=== PATIENT | female | born 1985 | race Hispanic/Latino ===

== ENCOUNTER 2017-12-23 14:23 | Observation (INO) | payer MEDICAID, SELFPAY ==
[~2017-12-23 14:23] MED LIST: ISOVUE-370 76%-LOCM 1 ML ONE
[2017-12-23 15:01] LABS: Bilirubin Negative (Negative); Blood, Urine Negative (Negative); Clarity CLEAR (Clear); Glucose, Urine (Dipstick) 100 mg/dL (Negative); Leukocyte Negative (Negative); Nitrite Negative (Negative); Protein, Urine (Dipstick) Trace mg/dL (Neg-Trace)
[2017-12-23 15:05] LABS: Pregnancy Test - Urine (BHCG) Negative (Negative); Pregu Control Background? CLEAR/WHITE (CLR/WHITE); Pregu Control Bar Appear? YES (CONTROL BAR)
[2017-12-23] MEDS ORDERED: Ondansetron HCl/PF 4 MG/2 ML Vial ONE (15:53)
[2017-12-23 16:07] LABS: #Basophils 0.1 thou/uL (0.0-0.2); #Eosinphils 0.1 thou/uL (0.0-0.7); #Lymphocytes 1.6 thou/uL (1.20-3.40); #Monocytes 1.4 thou/uL (0.11-0.59); #Neutrophils 12.6 thou/uL (1.40-6.50); %Basophils 0.5 % (0.0-1.0); %Eosinophils 0.6 % (0.0-10.0); %Lymphocytes 9.9 % (21.0-51.0); %Neutrophils 80.1 % (42.0-75.0); Mean Corpuscular HGB CONC 34.1 g/dL (32.0-36.0); Mean Corpuscular Hemoglobin 30.5 pg (27.0-31.0); Mean Corpuscular Volume 89.3 fl (81.0-99.0); Mean Platelet Volume 9.1 fL (7.4-10.4); Platelet Count 275 thou/uL (130-400); RBC Distribution Width 11.9 % (11.5-14.5); Red Blood Cell (RBC) Count 4.27 mill/uL (4.20-5.40); White Blood Cell (WBC) Count 15.7 thou/uL (4.8-10.8)
[2017-12-23 16:33] LABS: ALT (SGPT) 8 U/L (8-55); AST (SGOT) 12 U/L (5-34); Albumin 4.2 g/dL (3.5-5.0); Alkaline Phosphatase 66 U/L (40-150); Anion Gap 14 mmol/L (10-20); BUN (Urea Nitrogen) 9 mg/dL (7.0-18.7); Bilirubin, Total 0.8 mg/dL (0.2-1.2); Calc. Creatinine Clearance 0 mL/min (70-130); Calcium 9.1 mg/dL (7.8-10.44); Carbon Dioxide 23 mmol/L (22-29); Chloride 106 mmol/L (98-107); Estimated GFR-MDRD Greater than 90; Globulin 3.1 g/dL (2.4-3.5); Glucose 86 mg/dL (70-105); Lipase 49 U/L (8-78); Protein, Total 7.3 g/dL (6.0-8.3); Sodium 139 mmol/L (136-145)
--- NOTE | 2017-12-23 16:47 | ULT ---
RIGHT UPPER QUADRANT ULTRASOUND: 12/23/17 HISTORY: Right upper quadrant pain for four days. FINDINGS: In the expected location of the gallbladder, there is an echogenic mass-like structure with posterior shadowing. This may represent the gallbladder filled with sludge and multiple gallbladder calculi. H owever, color flow evaluation questions flow in this region. The gallbladder mass cannot be excluded based on sonographic evaluation. CT scan is recommended for further evaluation. Gallbladder wall is d ifficult to evaluate on this exam. The common duct measures 0.2 cm in diameter which is within normal limits. The limited visualized portions of the pancreas, visualized portions of the IVC, liver, and right kid celeste demonstrate a normal sonographic appearance. The right kidney measures 10.1 cm in length. IMPRESSION: 1. Echogenic mass-like area conforming to the region of the gallbladder with posterior shadowing . While these findings may be related to gallbladder filled with sludge and associated gallbladder ca lculi, color flow images suggest flow which could potentially be related to motion of the gallbladder sludge, but gallbladder mass with associated gallbladder calculi cannot be excluded. CT scan of the abdomen is recommended for further evaluation. 2. Common duct is normal in caliber. POS: OFF
[2017-12-23 17:57] LABS: BHCG - Serum Negative (NEGATIVE); Pregs Control Background? CLEAR/WHITE (CLR/WHITE); Pregs Control Bar Appear? YES (CONTROL BAR)
--- NOTE | 2017-12-23 18:22 | CT ---
CT ABDOMEN AND PELVIS WITH CONTRAST 12/23/17 Multiple axial tomograms obtained through the abdomen and pelvis with IV enhancement. HISTORY: Abnormal gallbladder noted on gallbladder ultrasound. CT was requested to rule out gallbladder mass. FINDINGS: Lung bases are clear. There is heterogeneity in the anterior right lobe of the liver extending to the gallbladder fossa. This may represent areas of fatty sparing. The gallbladder is abnormal. The gallbladder is distended and there is pericholecystic edema and flui d. No soft tissue mass identified within the gallbladder. Spleen and pancreas are unremarkable. Adrenal glands and kidneys are unremarkable. Bowel loops are unremarkable. Images through the pelvis reveal an IUD in the endometrial cavity. The left adnexa is prominent. There is a peripherally enhancing area in what appears to be the left a nd small amount of fluid in the left adnexa. This probably represents an involuting ovarian cyst; how ever, recommend correlation with serum HCG level to exclude ectopic. IMPRESSION: 1. The gallbladder is abnormal. The gallbladder is distended with pericholecystic fluid and shellie a. 2. Left pelvic adnexa is prominent with free fluid and a ring enhancing area which may represent involuting cyst. Recommend correlation with serum HCG level. 3. There is an IUD in the endometrial cavity. 4. Heterogeneity in the liver near the gallbladder fossa probably represents fatty sparring. Rec ommend followup after treatment of the apparent cholecystitis. POS: IVÁN
[2017-12-23] MEDS ORDERED: Piperacillin/Tazobactam 4.5 GM in Sodium Chloride 0.9% 100 ML IVPB SCH (18:30)
[2017-12-23] MEDS ORDERED: Morphine 5 MG/ML SYRINGE SLOW IVP PRN (20:30)
[2017-12-23] MEDS ORDERED: Ondansetron HCl/PF 4 MG/2 ML Vial IVP PRN (20:31)
[2017-12-23] MEDS ORDERED: Acetaminophen 325 MG TAB PO PRN (20:31)
[2017-12-23] MEDS ORDERED: Ondansetron ODT 4 MG TAB SL PRN (20:31)
[2017-12-23] MEDS: Sodium Chloride 0.9% 1,000 ML IV SCH (21:28)
[2017-12-23] MEDS ORDERED: FLU VACC QS2017-18 36 mo. & older 0.5 ML SYRINGE IM ONE (21:45)
[2017-12-24] MEDS: Sodium Chloride 0.9% 1,000 ML IV SCH (01:20)
[2017-12-24] MEDS ORDERED: Piperacillin/Tazobactam 4.5 GM in Sodium Chloride 0.9% 100 ML IVPB SCH (02:00)
[2017-12-24] MEDS ORDERED: Morphine 4 MG/ML Carpuject SLOW IVP PRN (07:56)
[2017-12-24] MEDS ORDERED: Ondansetron HCl/PF 4 MG/2 ML Vial IVP PRN (07:58)
[2017-12-24] MEDS ORDERED: Morphine 5 MG/ML SYRINGE SLOW IVP PRN (08:20)
[2017-12-24 09:00] LABS: ALT (SGPT) 122 U/L (8-55); AST (SGOT) 103 U/L (5-34); Albumin 3.4 g/dL (3.5-5.0); Alkaline Phosphatase 83 U/L (40-150); Anion Gap 9 mmol/L (10-20); BUN (Urea Nitrogen) 8 mg/dL (7.0-18.7); Calc. Creatinine Clearance 101 mL/min (70-130); Calcium 7.9 mg/dL (7.8-10.44); Carbon Dioxide 24 mmol/L (22-29); Chloride 111 mmol/L (98-107); Estimated GFR-MDRD Greater than 90; Globulin 2.4 g/dL (2.4-3.5); Glucose 85 mg/dL (70-105); Potassium 3.5 mmol/L (3.5-5.1); Protein, Total 5.8 g/dL (6.0-8.3); Sodium 140 mmol/L (136-145)
[2017-12-24] MEDS: D5 1/2 NS w/20 mEq KCL 1,000 ML IV SCH ×3 (09:12→21:08)
[2017-12-24 10:47] VITALS: BMI 23.4
[2017-12-24] MEDS: Piperacillin/Tazobactam 3.375 GM, Admixture Fee 1 EACH in Sodium Chloride 0.9% 100 ML IVPB SCH ×2 (11:34→18:05)
--- NOTE | 2017-12-24 12:19 | HP ---
CHIEF COMPLAINT: Abdominal pain. HISTORY OF PRESENT ILLNESS: Ms. Nix is a 32-year-old woman with known gallstones, who presented to the emergency room with a 4 day history of unrelenting right upper quadrant pain. She states that she has had similar episodes in the past, but they have resolved on their own. She was diagnosed wi th gallstones 5 or 6 years ago, but did not go to see a surgeon. She reports nausea and vomiting for the past 2 days and is unable to keep down any food. She did threw up several times, did not see an y blood or black color to her emesis. She denies any change in her bowel habits except for some diar rita. She has not seen any blood or melena in her stool. She denies any fevers, but has had some ch ills. When she went to the emergency room, she was found to be very tender in the right upper quadra nt and a gallbladder ultrasound showed possible stones and sludge versus a mass, so a CT scan was don e which did not show any soft tissue mass, but did show pericholecystic fluid and wall thickening con sistent with cholecystitis. Her common bile duct was normal and her LFTs were normal but her white c ount was elevated at 15,000, so she was admitted and started on IV antibiotics. Today, she is feelin g better. She still does not have much of an appetite, but is not nauseated and her pain has gone do wn with antibiotics and pain medication. PAST MEDICAL HISTORY: None. PAST SURGICAL HISTORY: None. FAMILY HISTORY: None. SOCIAL HISTORY: She does not smoke, drink or use illicit drugs. MEDICATIONS: No medications as an outpatient. ALLERGIES: No known drug allergies. PHYSICAL EXAMINATION: GENERAL: Reveals a healthy-appearing woman, in no acute distress. She is not flushed or toxic in ap pearance. She is not jaundiced or icteric. HEENT: Unremarkable. NECK: Supple without lymphadenopathy or thyroid nodules. HEART: Regular in its rate and rhythm without murmurs, rubs or gallops. LUNGS: Clear to auscultation bilaterally. ABDOMEN: Soft and nondistended. She is moderately tender to palpation in the right upper quadrant, nontender in the remainder of the abdomen. No palpable masses or hernias. No surgical scars. EXTREMITIES: Warm and well perfused without edema. NEUROLOGIC: No focal deficits. PSYCHIATRIC: Alert, oriented, and appropriate. LABORATORY DATA: White count was elevated at 15.7, but LFTs and lipase were normal. Repeat LFTs thi s morning are mildly elevated, AST and ALT has gone up to 103 and 122. Also, bilirubin is still norm al. X-RAY FINDINGS: CT and ultrasound images are reviewed and I agree with the written report. Her comm on bile duct was normal in caliber. ASSESSMENT: Cholelithiasis and cholecystitis. Her transaminitis is most likely due to her acute cho lecystitis, but I have recommended a cholangiogram. We will plan on a laparoscopic cholecystectomy later today and she has been placed on the OR schedule . The inherent risks of the operation were discussed with the patient using a Icelandic language trans lator. These include but are not limited to bleeding, infection, risks of anesthesia, damage to near by structures including bowel, liver and bile duct, need for open surgery and need for other procedur es. She understands and accepts these risks and wishes to proceed. We will maintain her on her IV a ntibiotics and if her surgery goes well, there is a possibility she could go home later today.
[2017-12-24] MEDS ORDERED: Fentanyl 100 MCG/2 ML VIAL ONE ×2 (12:54→15:10)
[2017-12-24] MEDS ORDERED: Bupivacaine PF 0.5% 30 ML VIAL ONE (12:57)
[2017-12-24] MEDS ORDERED: Iothalamate Meglumine 60% 50 ML VIAL FS ONE (12:57)
[2017-12-24] MEDS ORDERED: Lidocaine 1% w/Epinephrine 1:200K 30 ML VIAL ONE (12:57)
[2017-12-24] MEDS ORDERED: Glycopyrrolate 0.2 MG/ML 5 ML SYRINGE ONE (14:02)
[2017-12-24] MEDS ORDERED: Propofol 200 MG/20 ML VIAL ONE (14:02)
[2017-12-24] MEDS ORDERED: Dexamethasone 20 MG/5 ML VIAL ONE (14:02)
[2017-12-24] MEDS ORDERED: Lidocaine 1% PF 5 ML VIAL ONE (14:02)
[2017-12-24] MEDS ORDERED: Ketorolac Tromethamine 30 MG/ML VIAL ONE (14:02)
[2017-12-24] MEDS ORDERED: PHENYLEPHRINE-NS 100 MCG/ML 10 ML SYRINGE ONE (14:02)
[2017-12-24] MEDS ORDERED: Ondansetron HCl/PF 4 MG/2 ML Vial ONE (14:02)
--- NOTE | 2017-12-24 14:43 | RAD ---
INTRAOPERATIVE CHOLANGIOGRAM: DATE: 12/24/17. HISTORY: Cholecystectomy. Abnormal appearance of the gallbladder with pericholecystic fluid and edema. FINDINGS: A single fluoroscopic image of the right upper quadrant from intraoperative cholangiogram is submitte d for interpretation. Surgical instruments overlie the right upper quadrant. The cystic duct is can nulated. No filling defects are seen in the common duct and there is free spill of contrast into the duodenum. Limited visualized intrahepatic ducts demonstrate no filling defect. There is no evidenc e of biliary ductal dilatation. IMPRESSION: Intraoperative cholangiogram demonstrating no persistent filling defects. Correlation with intraoper ative findings is recommended. POS: IVÁN
[2017-12-24] MEDS ORDERED: Morphine 4 MG/ML Carpuject ONE (14:46)
[2017-12-24] MEDS ORDERED: HYDROcodone/Acetaminophen 7.5/325 mg Tablet PO PRN (15:50)
[2017-12-24] MEDS ORDERED: Promethazine 25 MG TAB PO PRN (15:50)
--- NOTE | 2017-12-24 16:06 | PDOC.OP ---
Operative Note - Operative Note Operative Note: PROCEDURE: Laparoscopic cholecystectomy with intraoperative cholangiogram SURGEON: Eloisa Soto M.D. DATE OF PROCEDURE: 12/24/2017 PREOPERATIVE DIAGNOSIS: Cholelithiasis and cholecystitis, possible choledocholithiasis: POSTOPERATIVE DIAGNOSIS: Cholelithiasis and cholecystitis HISTORY: Patient with known gallstones and a four-day history of unrelenting right upper quadrant pain. She was found to have pericholecystic fluid and wall thickening as well as stones on preoperative imaging, and on the morning of her surgery her transaminases had elevated. Recommendation was made for laparoscopic cholecystectomy for symptomatic relief, with intraoperative cholangiogram to evaluate for possible choledocholithiasis. FINDINGS: Severely edematous and inflamed white walled gallbladder with fibrosis and edema in the wall and omental and duodenal adhesions, consistent with acute on chronic cholecystitis. Gallbladder had to be aspirated to be grasped. Multiple stones in the gallbladder had to be removed to extract the gallbladder. Normal intraoperative cholangiogram PROCEDURE IN DETAIL: After informed consent was obtained and appropriate preoperative antibiotics were administered, the patient was taken to the operating room and placed in the supine position and general endotracheal anesthesia was administered. The stomach was decompressed with an OG tube and the abdomen was prepped and draped in standard sterile fashion. Local anesthesia was infused to the skin and subcutaneous tissues at the umbilical level. A transverse skin incision was made. The fascia was elevated and a Veress needle was placed into the abdominal cavity without difficulty. Opening pressure was less than 5 and carbon dioxide gas easily insufflated to an intra- abdominal pressure of 15, which the patient tolerated well. The Veress needle was withdrawn and a Nikolski port advanced under direct vision. The abdominal cavity was carefully examined. There was no evidence of Veress needle or of trocar injury. Local anesthesia was infused to the skin and subcutaneous tissues at the epigastric, right upper quadrant, and right lateral abdominal sites and trocars were placed under direct vision of the laparoscope. The fundus of the gallbladder was too tautly distended to be grasped, so this was aspirated with removal of 10 mL's of very viscous dark bile. After this the fundus was able to be grasped and retracted superiorly. The patient had extensive omental adhesions which had to be stripped inferiorly to expose the anterior wall of the gallbladder. This was done along the avascular plane using careful electrocautery as needed. At the infundibulum was approached the patient was also noted to have duodenal adhesions. These were carefully taken down avoiding any electrocautery in the vicinity of the duodenum. In this way the infundibulum was able to be completely exposed. The infundibulum was grasped and retracted laterally and the stone was noted to be impacted in the neck of the gallbladder. The serosa was stripped inferiorly at the level of the neck of the gallbladder exposing the cystic duct and artery which were traced clearly to their insertion in the gallbladder. These were dissected free circumferentially and the cystic duct was clipped at the level of the neck of the gallbladder. An incision was made in the cystic duct inferior to the clip and the cystic duct was palpated with no stones palpable. Clear bile was seen to flow from the cystic duct incision. A cholangiogram catheter was introduced and placed into the cystic duct and secured with a clip. A cholangiogram was obtained which showed an adequate length of cystic duct. There was normal filling of the common bile duct with free flow of contrast into the duodenum. There was normal retrograde flow into the common hepatic duct beyond the level of the bifurcation without filling defects. The cholangiogram catheter was removed and the cystic duct clipped below the incision in the cystic duct. The cystic duct was divided between these clips and the previously placed clip. The cystic artery was clipped and divided between clips. The gallbladder was then dissected free of the gallbladder bed using hook electrocautery. This was done with moderate difficulty due to fibrosis in the wall of the gallbladder. At one point the gallbladder was entered and bile was spilled but this was all able to be suctioned out of the abdomen and the single stone which was spilled was retrieved. Prior to complete removal of the gallbladder from the gallbladder bed , the area of the cystic duct and artery stumps was examined. The clips were in good position completely across these structures and there was no bleeding and no leakage of bile. The gallbladder was then placed into an EndoCatch bag and drawn part way out through the epigastric incision. The gallbladder was in size within the Endo Catch bag and multiple stones crushed and removed from the gallbladder before was able to be removed through the epigastric incision. The epigastric trocar was replaced and the operative site easily irrigated to clear. There was no significant bleeding. The epigastric trocar was removed and the fascia closed under direct laparoscopic vision with a 0 Vicryl suture on a GraNee needle in a [id number] manner with excellent technical result. The right upper quadrant and right lateral abdominal trocars were removed and hemostasis verified. Carbon dioxide gas was allowed to desufflate through the umbilical trocar which was then removed. The skin incisions were closed with 4- 0 subcuticular Monocryl sutures and Dermabond dressings were placed. The patient was extubated and taken to the recovery room in good condition. There were no complications. ESTIMATED BLOOD LOSS: Minimal. SPECIMEN : Gallbladder and contents.
[2017-12-24] MEDS: HYDROcodone/Acetaminophen 7.5/325 mg Tablet PO PRN (19:26)
[2017-12-25] MEDS: Piperacillin/Tazobactam 3.375 GM, Admixture Fee 1 EACH in Sodium Chloride 0.9% 100 ML IVPB SCH ×3 (00:23→11:25)
[2017-12-25] MEDS: HYDROcodone/Acetaminophen 7.5/325 mg Tablet PO PRN (05:58)
[2017-12-25] MEDS: D5 1/2 NS w/20 mEq KCL 1,000 ML IV SCH (08:04)
[2017-12-25 11:37] VITALS: BP 95/61; TEMP 98.4
== END 2017-12-25 13:24 | disposition home or self-care (01) ==
LOC: ERS 14:23 → SURG B 19:45
PROVIDERS: ADMIT Surgery; ATTEND Surgery
PROC: 0FT44ZZ Resection of Gallbladder, Percutaneous Endoscopic Approach (ICD-10-PCS; principal; 2017-12-24)
PROC: BF131ZZ Fluoroscopy of Gallbladder and Bile Ducts using Low Osmolar Contrast (ICD-10-PCS; 2017-12-24)
DX: K80.00 Calculus of gallbladder with acute cholecystitis without obstruction (principal)
CPT/HCPCS: 36415; 47532; 74177; 76705; 80053; 81003; 81025; 83690; 84703; 85025; 87086; 88304; 96361; 96374; 96375; 96376; J2270; A4216; G0378; J1100; J1885; J2001; J2405; J2543; J2704; J3010; J7050; Q9961; S0020